=== PATIENT | female | born 1950 | race Caucasian/White ===

== ENCOUNTER 2016-10-31 06:29 | Day surgery (SDC) | payer BC ==
[2016-10-31] MEDS ORDERED: Dextrose 5%-Lactated Ringers 1,000 ML IV SCH (06:45)
[2016-10-31] MEDS ORDERED: fentaNYL 100 MCG/2 ML SDV ONE (07:12)
[2016-10-31] MEDS ORDERED: Midazolam 1 MG/ML 2 ML SDV ONE (07:12)
[2016-10-31] MEDS ORDERED: Propofol 200 MG/20 ML SDV ONE (07:12)
[2016-10-31] MEDS ORDERED: Glycopyrrolate 0.2 MG/ML 2 ML SYRINGE IVPUSH ONE (07:15)
[2016-10-31 11:44] VITALS: BP 126/77
--- NOTE | 2016-11-05 07:13 | OR ---
DATE OF PROCEDURE: 10/31/2016 PREOPERATIVE DIAGNOSIS: Gastroesophageal reflux disease. POSTOPERATIVE DIAGNOSIS: Gastroesophageal reflux disease associated with a small hiatal hernia, and a wide open esophagogastric junction. OPERATIVE PROCEDURE: Esophagogastroduodenoscopy with: 1. Biopsies esophagogastric junction for histologic evaluation. 2. Biopsies of antrum for CLOtest. ANESTHESIA: IV sedation. INDICATIONS FOR PROCEDURE: This is a 66-year-old female presenting with longstanding gastroesophageal reflux disease. She has been on Nexium 40 mg daily, long-term and then recently had increasing symptoms of heartburn, epigastric pain and some bilious emesis. Plan is to proceed with upper GI endoscopy with biopsies as indicated. Potential of risks including bleeding and perforation were discussed, and the patient wishes to proceed. DETAILS OF PROCEDURE: The patient was taken to the operating room and placed in a left lateral decubitus position. IV sedation was administered, after which the upper GI endoscope was passed orally through the esophagus and into the stomach with retroflexion view of the fundus, thereafter through the pyloric channel into the proximal duodenum. Findings included normal hypopharynx, larynx, upper esophageal sphincter, and esophageal body. At the distal esophagus, there was a straight wide open conduit from the esophagus and the stomach with loss of any angulation associated with roughly 1-2 cm hiatal hernia. The mucosa in that area was quite reddened and friable. There was no stricture or gross evidence of neoplasia. There did not appear to be any upward extension of the gastroesophageal junction mucosal line above the upper gastric folds. In the stomach, the retroflexion confirmed a small hiatal hernia in the antrum and the pyloric sphincter and duodenum where portions of significant hernias were noted. At this point, biopsies obtained from the antrum and sent for CLOtest suspicions H-pylori status; however, biopsies were then obtained from esophagogastric junction, sent for histologic evaluation. No bleeding from the biopsy sites was seen and the procedure then concluded. The patient was taken to the recovery room in satisfactory condition. Prior to the procedure, I briefly reviewed the issue of Karyna fundoplication and after the patient had recovered from her sedation along with the , the discussion regarding treatment options undertaken. The plan would be to treat with a Karyna fundoplication this coming Thursday as she appears to be a good candidate and her refluxes being refractory to medical management, potential risks of the procedure, side effects and such were reviewed with the patient and and these were also been reviewed with them prior to the procedure on Thursday. Edson Hinkle MD /[id number]
== END 2016-10-31 12:30 | disposition home or self-care (01) ==
LOC: JP.SDS 06:29
PROVIDERS: ATTEND Surgery
DX: K31.89 Other diseases of stomach and duodenum (principal); K21.9 Gastro-esophageal reflux disease without esophagitis; K44.9 Diaphragmatic hernia without obstruction or gangrene; I10 Essential (primary) hypertension; Z88.0 Allergy status to penicillin
CPT/HCPCS: 36415; 43239; 80053; 83735; 84100; 85027; 87081; J2250; J2704; J3010; J7042; 88305

== ENCOUNTER 2016-11-03 05:27 | Inpatient (IN) | payer BC ==
[~2016-11-03 05:27] MED LIST: ceFAZolin 2 GM in Premix Bag 1 BAG IV ONE
[2016-11-03] MEDS ORDERED: Dextrose 5%-Lactated Ringers 1,000 ML IV SCH (06:00)
[2016-11-03] MEDS ORDERED: ceFAZolin 2 GM in Premix Bag 1 BAG IV ONE ×4 (07:15)
[2016-11-03] MEDS ORDERED: ceFAZolin 2 GM in Sodium Chloride 0.9% 50 ML IV ONE (07:15)
[2016-11-03] MEDS ORDERED: ceFAZolin 2 GM in Sodium Chloride 0.9% 100 ML IV ONE (07:15)
[2016-11-03] MEDS ORDERED: HYDROmorphone/Normal Saline 15 MG/30 ML PCA IV PRN (07:29)
[2016-11-03] MEDS ORDERED: Naloxone 0.4 MG/ML SDV IVPUSH PRN (07:29)
[2016-11-03] MEDS ORDERED: Lidocaine 1% 2 ML ONE (07:38)
[2016-11-03] MEDS ORDERED: fentaNYL 250 MCG/5 ML SDV ONE (07:40)
[2016-11-03] MEDS ORDERED: Neostigmine Methylsulfate 1 MG/ML 5 ML Syringe ONE (07:40)
[2016-11-03] MEDS ORDERED: Dexamethasone 4 MG/ML SDV ONE (07:40)
[2016-11-03] MEDS ORDERED: Propofol 200 MG/20 ML SDV ONE (07:40)
[2016-11-03] MEDS ORDERED: Succinylcholine/Normal Saline 200 MG/10 ML Syringe ONE (07:40)
[2016-11-03] MEDS ORDERED: Ondansetron 4 MG/2 ML SDV ONE (07:40)
[2016-11-03] MEDS ORDERED: Rocuronium 50 MG/5 ML Vial ONE (07:40)
[2016-11-03] MEDS ORDERED: ePHEDrine 50 MG/ML SDV ONE (08:20)
[2016-11-03] MEDS ORDERED: Ondansetron 4 MG/2 ML SDV IVPUSH PRN (10:37)
[2016-11-03] MEDS: Pantoprazole 40 MG Vial IV SCH (11:29)
[2016-11-03] MEDS: Metoclopramide 10 MG/2 ML SDV IVPUSH SCH ×2 (11:29→20:41)
[2016-11-03] MEDS: Trospium 20 MG Tab PO SCH ×2 (11:29→20:40)
[2016-11-03] MEDS: Dextrose 5%-Lactated Ringers 1,000 ML IV SCH ×2 (11:56→19:18)
[2016-11-03] MEDS: ceFAZolin 2 GM in Sodium Chloride 0.9% 50 ML IV SCH ×2 (14:05→21:56)
[2016-11-03] MEDS: traZODone 50 MG Tab PO SCH (20:40)
[2016-11-04] MEDS: Dextrose 5%-Lactated Ringers 1,000 ML IV SCH (03:01)
[2016-11-04] MEDS: Metoclopramide 10 MG/2 ML SDV IVPUSH SCH ×3 (03:35→21:13)
[2016-11-04] MEDS: ceFAZolin 2 GM in Sodium Chloride 0.9% 50 ML IV SCH (06:05)
[2016-11-04] MEDS ORDERED: Acetaminophen 325 MG Tab PO PRN (08:22)
[2016-11-04] MEDS ORDERED: HYDROmorphone 2 MG Tab PO PRN (08:22)
[2016-11-04] MEDS ORDERED: Dextrose 5%-Lactated Ringers 1,000 ML IV SCH (08:30)
[2016-11-04] MEDS: Aspirin 81 MG Tab.EC PO SCH (10:10)
[2016-11-04] MEDS: Hydrochlorothiazide 12.5 MG Cap PO SCH (10:10)
[2016-11-04] MEDS: Lisinopril 20 MG Tab PO SCH (10:11)
[2016-11-04] MEDS: Trospium 20 MG Tab PO SCH ×2 (10:11→21:14)
[2016-11-04] MEDS: Sertraline 50 MG Tab PO SCH (10:11)
[2016-11-04] MEDS: PREMPRO PO SCH (10:17)
[2016-11-04] MEDS ORDERED: Menthol/Methyl Salicylate 85 GM Tube TOP PRN (10:21)
--- NOTE | 2016-11-04 11:46 | PN ---
DATE OF SERVICE: 11/04/2016 The patient has been afebrile with stable vital signs. after this complication to sip water and such we will begin a full liquid diet today, switch over to oral pain medication, and she may be ready for discharge home tomorrow. Edson Hinkle MD /[id number]
[2016-11-04] MEDS: Pantoprazole 40 MG Vial IV SCH (11:59)
[2016-11-04] MEDS: traZODone 50 MG Tab PO SCH (21:13)
[2016-11-05] MEDS: Metoclopramide 10 MG/2 ML SDV IVPUSH SCH (03:57)
[2016-11-05 07:15] VITALS: BP 141/69
[2016-11-05] MEDS: Hydrochlorothiazide 12.5 MG Cap PO SCH (09:04)
[2016-11-05] MEDS: PREMPRO PO SCH (09:05)
[2016-11-05] MEDS: Aspirin 81 MG Tab.EC PO SCH (09:05)
[2016-11-05] MEDS: Sertraline 50 MG Tab PO SCH (09:05)
[2016-11-05] MEDS: Trospium 20 MG Tab PO SCH (09:05)
[2016-11-05] MEDS: Lisinopril 20 MG Tab PO SCH (09:05)
[2016-11-05] MEDS ORDERED: Magnesium Hydroxide 400 MG/5 ML Susp 30 ML Cup PO ONE (10:45)
--- NOTE | 2016-11-05 11:19 | OR ---
DATE OF PROCEDURE: 11/03/2016 PREOPERATIVE DIAGNOSIS: Gastroesophageal reflux disease refractory to medical management. POSTOPERATIVE DIAGNOSES: 1. Gastroesophageal reflux disease refractory to medical management associated with large paraesophageal diaphragmatic hernia. 2. Mediastinal lipoma. OPERATIVE PROCEDURES: 1. Laparoscopic Karyna fundoplication with repair of paraesophageal diaphragmatic hernia with mesh (41110). 2. Excision of mediastinal lipoma (10687). ANESTHESIA: General. POOL TABLE MECHANIC: Ashley Rowe PA-C, and [place] Rhodes. INDICATIONS FOR PROCEDURE: This is a 66-year-old who is recently status post upper endoscopy, which confirmed a hiatal hernia and a wide open esophagogastric junction. Clinically, her reflux disease has become refractory to medical management, and the plan is to proceed with Karyna fundoplication. Potential risks including bleeding; infection; injury to underlying viscera; problems with the fundoplication such as dysphagia, gas-bloat syndrome, disorders of gastric emptying rate, as well as an incomplete relief of reflux symptoms were gone over; along with the remote possibility of cardiopulmonary, septic, or hemorrhagic complications leading to ; and the patient wishes to proceed. DETAILS OF PROCEDURE: The patient was taken to the operating room and placed in a supine position. After general endotracheal anesthesia was induced, she was converted to a lithotomy position, and a Lovett catheter was inserted, and the abdomen was prepped and draped. 15 cm inferior and 5 cm left of xiphoid process, a transverse incision was made, and the peritoneal cavity was entered under direct vision with an Optiview trocar and inflated to 15 mmHg of CO2. The laparoscope was then reinserted. No underlying trocar insertion site injuries were seen. Following this, 4 additional trocars were placed across the upper and mid abdomen and a general exploration was undertaken. Upon retraction of the liver, the patient was noted to have a quite large diaphragmatic hernia. This had a major paraesophageal component to it with prolapse of a portion of the fundus into the plane anterior to the course of the esophagus. There was also some omentum prolapsed up into the diaphragmatic hernia as well. After reduction of the omentum, photodocumentation was obtained of this hiatal hernia. At this point, the stomach was reduced downward, and the peritoneum to the right, then anterior, and then left of esophagogastric junction was incised. This allowed dissection of the distal esophagus from the crura on each side and retrocrural window accomplished in the esophagus and centered over the Yogesh drain. Using Harmonic scalpel, further dissection eventually freed up the esophagus to the point where there was a roughly 4 to 5 cm length of intra-abdominal esophagus present. The crural repair was then accomplished posteriorly with a series of 0 Ethibond sutures reinforced with PTFE pledgets. Once this was completed, it felt to be adequately snugged but not overly tight. A Phasix mesh was then selected and cut such that it would lay across the crural repair along the edges of the esophagus on each side. This was positioned and then fixed in place with some titanium tacking screws. Attention was then taken to the mobilization of the fundus. Beginning in the mid greater curvature, the omentum was divided away from the stomach. Using Harmonic scalpel, the dissection continued proximally through the short gastric vessels including the highest posterior short gastric vessels. Once this was accomplished, the fundus was judged to be satisfactorily mobile and retrieved through the retroesophageal window and at that point, the Yogesh drain had been removed. Anesthesia then placed a guidewire orally through the length of the esophagus and into the stomach. Over this, a 54-Afghan Savary dilator was positioned. A 3-stitch 2 cm fundoplication was accomplished with 0 Ethibond sutures reinforced with PTFE pledgets. Each of these sutures included a bite of the underlying esophagus and fixed in position. Finally, on each side, the same stitch-pledget combination was used to fix the fundoplication up to the diaphragm to help fix it in position as well. The dilator and wire were then removed and fundoplication was found to be satisfactorily floppy. During the course of the mediastinal resection, the mediastinal lipoma was encountered to facilitate adequate closure of the crura as well as to confirm histologic status. The mediastinal lipoma was excised and sent over as a surgical specimen. At this point, with no further problems noted, trocars were removed and peritoneal cavity deflated. The fascia at the 12-mm site was closed with 0 Vicryl stitch, and the skin at each of the incisions with 4-0 Vicryl skin stitch, and dressing applied. The patient was taken to the recovery room in satisfactory condition. Physician speech pathology assistant, Ashley Rowe, played an essential role in assisting in this case, helping to position the patient, retract structures as needed, as well as suturing and cutting sutures when indicated. Her presence improved patient safety and decreased the operative time. Edson Hinkle MD /[id number]
--- NOTE | 2016-11-05 13:35 | DISCH ---
ADMISSION DIAGNOSES: 1. Gastroesophageal reflux disease refractory to medical management. 2. Hypertension. 3. Hyperlipidemia. 4. Iron deficiency. 5. Actinic keratosis. 6. SI joint pain. 7. Excessive sleepiness. 8. Degenerative disk disease of lumbar spine. DISCHARGE DIAGNOSES: Laparoscopic Karyna fundoplication with repair of paraesophageal hernia with mesh and excision of mediastinal lipoma for GERD refractory to medical management and large paraesophageal diaphragmatic hernia, and mediastinal lipoma on 11/03/2016. HISTORY: Montserrat Craig is a 66-year-old female with GERD refractory to medical management. After preoperative evaluation and discussion of possible risks and possible complications, they wished to proceed with surgical procedure. HOSPITAL COURSE: Montserrat had her surgery on 11/03/2016. She had no operative complications. On postop day #1, she was started on a clear liquid diet and advanced to a full-liquid diet. She was changed to oral pain medication. Her pain was well managed. Her activity was good. Vital signs were stable. She was able to be discharged to home on 11/05/2016. PHYSICAL EXAMINATION: GENERAL: Montserrat Craig is a 66-year-old female. VITAL SIGNS: Height is 5 feet 4 inches. Weight is 166 pounds. BMI is 28. TPR 97.6, 80, 16, and blood pressure 141/69. HEENT: Negative. NECK: Supple. HEART: Regular rate and rhythm. LUNGS: Clear. ABDOMEN: Incisions look good. Abdominal binder is off currently. EXTREMITIES: Without peripheral edema. DISPOSITION: Discharged to home. CONDITION: Stable and improving. FOLLOWUP APPOINTMENT: With Ashley Rowe PA-C, on 11/17/2016 at 10 a.m. She is unable to follow up any sooner because she has a garage sale at her home. DISCHARGE MEDICATIONS: New prescriptions; 1. Tylenol 650 mg oral q.4 hours p.r.n. pain. 2. Dilaudid 2 mg 1 to 2 every 4 hours p.r.n. pain, #30. 3. Milk of magnesia 30 mL, take 1 daily. Two were sent home with the patient. Resume home medications of Nexium 40 mg oral daily, aspirin 81 mg oral daily, lisinopril/hydrochlorothiazide 20/12.5 mg one daily, mineral oil petroleum white one drop ophthalmic daily, multivitamin one each daily, potassium chloride 20 mEq oral twice daily, Zoloft 50 mg oral daily, and VESIcare 5 mg oral daily for bladder control, Lipitor 20 mg at bedtime, and trazodone 50 mg at bedtime. DISCHARGE DIET: Full liquid diet for 2 weeks. ACTIVITY: As tolerated. No lifting greater than 10 pounds for 2 weeks[address]riving, do not drive while on pain medication. Shower/bathing, may shower. DISCHARGE INSTRUCTIONS: Notify provider if any fever, nausea, or vomiting. Wound incision care, keep site clean and dry. Wear abdominal binder for 2 weeks and then as tolerated. Special instruction, use incentive spirometer 10 times every hour while awake.
== END 2016-11-05 10:59 | disposition home or self-care (01) | DRG 220 ==
LOC: JP.SDS 05:27 → JP.MS 07:30 → JP.2SS 07:30 → UNDOADMIN 07:30 → EDSTATUS 07:30 → JP.2SS 09:50
PROVIDERS: ADMIT Surgery; ATTEND Surgery
PROC: 0BUR4JZ (ICD-10-PCS; principal; 2016-11-03)
PROC: 0DV44ZZ Restriction of Esophagogastric Junction, Percutaneous Endoscopic Approach (ICD-10-PCS; principal; 2016-11-03)
PROC: 0BUS4JZ (ICD-10-PCS; principal; 2016-11-03)
PROC: 0WBC4ZX Excision of Mediastinum, Percutaneous Endoscopic Approach, Diagnostic (ICD-10-PCS; principal; 2016-11-03)
DX: K21.9 Gastro-esophageal reflux disease without esophagitis (principal); D17.4 Benign lipomatous neoplasm of intrathoracic organs; K44.0 Diaphragmatic hernia with obstruction, without gangrene; I10 Essential (primary) hypertension; E78.5 Hyperlipidemia, unspecified; M53.3 Sacrococcygeal disorders, not elsewhere classified; M47.896 Other spondylosis, lumbar region; Z79.82 Long term (current) use of aspirin; Z88.0 Allergy status to penicillin
CPT/HCPCS: 88304; 94762; A9270-GY; C1781; C9113; J0690; J1100; J1170; J2405; J2704; J2765; J3010; J7042; J7050

== ENCOUNTER 2020-01-10 05:33 | Day surgery (SDC) | payer MEDICARE, BC ==
[2020-01-10] MEDS ORDERED: Dextrose 5%-Lactated Ringers 1,000 ML IV SCH (06:00)
[2020-01-10] MEDS ORDERED: Propofol 200 MG/20 ML SDV ONE (06:49)
[2020-01-10] MEDS ORDERED: fentaNYL 100 MCG/2 ML SDV ONE (06:49)
[2020-01-10] MEDS ORDERED: Midazolam 1 MG/ML 2 ML SDV ONE (06:49)
[2020-01-10 08:40] VITALS: BP 128/59; PULSE 65
--- NOTE | 2020-01-24 16:08 | OR ---
DATE OF PROCEDURE: 01/10/2020 SURGEON: Edson Hinkle MD PREOPERATIVE DIAGNOSIS: Recurrent gastroesophageal reflux disease, status post Karyna fundoplication. POSTOPERATIVE DIAGNOSES: 1. Recurrent gastroesophageal reflux disease associated with in fact loosened-appearing Karyna fundoplication. 2. Possible Shook esophagus. 3. Mild antral gastritis. OPERATIVE PROCEDURES: Esophagogastroduodenoscopy with: 1. Biopsy of esophagogastric junction for histologic evaluation. 2. Biopsies of antrum for CLOtest. ANESTHESIA: IV sedation. INDICATION FOR PROCEDURE: The patient is status post Karyna fundoplication in 2017. Most recently, she has had some recurrent heartburn. She presently is on Protonix 40 mg a day which controlled her symptoms to a significant extent but not completely. The plan is to proceed with upper endoscopy with biopsies as indicated. Potential risks, including bleeding and perforation were discussed, and the patient wishes to proceed. DETAILS OF PROCEDURE: The patient was taken to the operative room and placed in the left lateral decubitus position. IV sedation was administered, after which the upper GI endoscope was passed orally through the length of the esophagus into the stomach with retroflexion view of the fundus, and thereafter through the pyloric channel and into the proximal duodenum. Findings included normal hypopharynx, larynx, upper esophageal sphincter, and esophageal body. As one entered the stomach, retroflexion was undertaken through view of the fundus, and thereafter scope was passed through the junction of the 3rd and 4th portions of the duodenum. Findings included normal hypopharynx, larynx, upper esophageal sphincter, and esophageal body. At the EG junction, there was an intact Karyna effect. There was a significant upward extension from the columnar mucosa above the gastric folds. At this point, relatively minimal gross inflammation and by passing through the area of the fundoplication to the distal esophagus, inspection revealed a nearly intact kasaan of the fundoplication, but posteriorly there was some average weakening of that area. Within the antrum, there was some patchy redness, otherwise the remainder of the examinations of third and fourth portions of the duodenum was unremarkable. At this point, biopsy was obtained from the antrum and sent for CLOtest for H pylori. Multiple biopsies were then obtained from the distal esophagus beyond the columnar mucosa, and no bleeding was seen. The procedure was then concluded. At this point, we will continue on the present medical management. We will see her back on 01/18/2020 to discuss treatment options. This is somewhat we may opt to have this tightened up versus simply continuing medical management. Edson Hinkle MD /[id number]
== END 2020-01-10 08:51 | disposition home or self-care (01) ==
LOC: JP.SDS 05:33
PROVIDERS: ATTEND Surgery
DX: K20.0 Eosinophilic esophagitis (principal); K29.50 Unspecified chronic gastritis without bleeding; K31.89 Other diseases of stomach and duodenum; I10 Essential (primary) hypertension; Z98.84 Bariatric surgery status; Z88.0 Allergy status to penicillin
CPT/HCPCS: 43239; 87081; 88305; 88312; J2250; J2704; J3010; J7121

== ENCOUNTER 2021-12-26 08:24 | Day surgery (SDC) | payer MEDICARE, BC ==
[2021-12-26] MEDS ORDERED: Sodium Chloride 0.9% 10 ML Syringe FLUSH ONE (09:00)
[2021-12-26 09:30] VITALS: BP 137/68; PULSE 57
== END 2021-12-26 09:43 | disposition home or self-care (01) ==
LOC: JP.SDS 08:24
PROVIDERS: ATTEND Ophthalmology
DX: H25.11 Age-related nuclear cataract, right eye (principal); I10 Essential (primary) hypertension; E78.5 Hyperlipidemia, unspecified; K21.9 Gastro-esophageal reflux disease without esophagitis; Z88.0 Allergy status to penicillin
CPT/HCPCS: 66984; J3490; V2632

== ENCOUNTER 2022-01-09 06:58 | Day surgery (SDC) | payer MEDICARE, BC ==
[~2022-01-09 06:58] MED LIST changes: +Sodium Chloride 0.9% 10 ML Syringe FLUSH PRN; -ceFAZolin 2 GM in Premix Bag 1 BAG IV ONE
[2022-01-09] MEDS ORDERED: Sodium Chloride 0.9% 10 ML Syringe FLUSH ONE (07:15)
[2022-01-09 08:46] VITALS: BP 123/48; PULSE 52
== END 2022-01-09 08:51 | disposition home or self-care (01) ==
LOC: JP.SDS 06:58
PROVIDERS: ATTEND Ophthalmology
DX: H25.12 Age-related nuclear cataract, left eye (principal); I10 Essential (primary) hypertension; K21.9 Gastro-esophageal reflux disease without esophagitis; E87.6 Hypokalemia; Z88.0 Allergy status to penicillin
CPT/HCPCS: 66984; J3490; V2632

== ENCOUNTER 2022-01-14 05:58 | Day surgery (SDC) | payer MEDICARE, BC ==
[2022-01-14] MEDS ORDERED: Dextrose 5%-Lactated Ringers 1,000 ML IV SCH (06:30)
[2022-01-14] MEDS ORDERED: Propofol 200 MG/20 ML SDV ONE (07:09)
[2022-01-14] MEDS ORDERED: Midazolam 1 MG/ML 2 ML SDV ONE (07:09)
[2022-01-14] MEDS ORDERED: fentaNYL 100 MCG/2 ML SDV ONE (07:09)
[2022-01-14 08:16] VITALS: PULSE 56
[2022-01-14 08:31] VITALS: BP 130/62
== END 2022-01-14 08:46 | disposition home or self-care (01) ==
LOC: JP.SDS 05:58
PROVIDERS: ATTEND Surgery
DX: K22.89 Other specified disease of esophagus (principal); K22.10 Ulcer of esophagus without bleeding; K44.9 Diaphragmatic hernia without obstruction or gangrene; K21.00 Gastro-esophageal reflux disease with esophagitis, without bleeding; I10 Essential (primary) hypertension; E78.5 Hyperlipidemia, unspecified; Z98.84 Bariatric surgery status; Z88.0 Allergy status to penicillin
CPT/HCPCS: 43239; 43251; 87081; 88305; 88312; 88341; 88342; J2250; J2704; J3010; J7121

== ENCOUNTER 2023-12-01 04:44 | Emergency (ER) | payer MEDICARE, BC ==
[2023-12-01 04:56] VITALS: BP 141/84; PULSE 93
[2023-12-01] MEDS: LORazepam 1 MG Tab PO ONE (05:19)
[2023-12-01] MEDS: methylPREDNISolone Sodium Succinate 125 MG/2 ML SDV IM ONE (05:19)
== END 2023-12-01 05:52 | disposition home or self-care (01) ==
LOC: JP.ED 04:44
DX: L29.9 Pruritus, unspecified (principal); I10 Essential (primary) hypertension; E78.00 Pure hypercholesterolemia, unspecified; K21.9 Gastro-esophageal reflux disease without esophagitis; Z90.49 Acquired absence of other specified parts of digestive tract; Z79.82 Long term (current) use of aspirin; Z79.899 Other long term (current) drug therapy; Z88.0 Allergy status to penicillin
CPT/HCPCS: 96372; 99282; A9270; J2919

== ENCOUNTER 2024-11-09 06:43 | Day surgery (SDC) | payer MEDICARE, BC ==
[2024-11-09] MEDS ORDERED: Propofol 200 MG/20 ML SDV ONE (07:00)
[2024-11-09] MEDS ORDERED: fentaNYL 50 MCG/ML SDV ONE (07:01)
[2024-11-09] MEDS: Lactated Ringers 1,000 ML IV SCH (07:38)
[2024-11-09 09:47] VITALS: BP 123/54; PULSE 60
== END 2024-11-09 09:48 | disposition home or self-care (01) ==
LOC: JP.SDS 06:43
PROVIDERS: ATTEND Surgery
DX: Z12.11 Encounter for screening for malignant neoplasm of colon (principal); K63.5 Polyp of colon; K57.30 Diverticulosis of large intestine without perforation or abscess without bleeding; I10 Essential (primary) hypertension; I25.10 Atherosclerotic heart disease of native coronary artery without angina pectoris
CPT/HCPCS: 00811; 45385; 88305; J2704; J3010; J7120